=== PATIENT | male | born 1960 | race Caucasian/White ===

== ENCOUNTER 2017-03-20 22:37 | Emergency (ER) | payer OTHER ==
[~2017-03-20] VITALS: Ht 167.6 cm; Wt 89.6 kg
[2017-03-20 22:39] VITALS: BP 147/79
[2017-03-21] MEDS ORDERED: DEXAMETHASONE 4 MG TABLET PO STA (00:03)
== END 2017-03-21 00:38 | disposition home or self-care (01) ==
LOC: ED 23:59
DX: J20.9 Acute bronchitis, unspecified (principal)
CPT/HCPCS: 71020; 93005; 99284